=== PATIENT | male | born 1990 | race Caucasian/White ===

== ENCOUNTER 2018-11-29 09:11 | Emergency (ER) | payer MEDICARE, BC ==
[~2018-11-29] VITALS: Ht 175.3 cm; Wt 86.2 kg
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
--- NOTE | 2018-11-29 09:27 | NUR ---
DR. TA AT BEDSIDE FOR MSE.
[2018-11-29] MEDS ORDERED: LEVE500T9 PO (09:29)
[2018-11-29] MEDS ORDERED: IV NORMAL SALINE 1000 ML BAG IV ONE (09:45)
[2018-11-29] MEDS ORDERED: LORAZEPAM 2 MG/1 ML VIAL IV ONE (09:45)
[2018-11-29] MEDS ORDERED: LEVETIRACETAM 250 MG TABLET PO ONE (09:45)
[2018-11-29 10:04] LABS: BASOPHILS # (AUTO) 0.1 K/uL (0.0-8.0); EOSINOPHILS # (AUTO) 0.1 K/uL (0.0-0.7); EOSINOPHILS % (AUTO) 0.5 % (0.0-7.0); HEMATOCRIT 51.1 % (36.7-47.1); LYMPHOCYTES # (AUTO) 2.5 K/uL (20.0-40.0); LYMPHOCYTES % (AUTO) 25.1 % (20.5-51.5); MEAN CORPUSCULAR HEMOGLOBIN 30.4 uug (23.8-33.4); MEAN CORPUSCULAR HGB CONC 33 g/dL (32.5-36.3); MONOCYTES # (AUTO) 0.4 K/uL (2.0-10.0); MONOCYTES % (AUTO) 4.4 % (0.0-11.0); NEUTROPHILS # (AUTO) 6.9 K/uL (1.8-8.9); PLATELET COUNT (AUTO) 335 K/uL (152-348); RED BLOOD CELL COUNT(AUTO) 5.61 MIL/uL (4.06-5.63)
[2018-11-29] MEDS ORDERED: LEVETIRACETAM 250 MG TABLET ONE (10:04)
[2018-11-29] MEDS ORDERED: LORAZEPAM 2 MG/1 ML VIAL ONE (10:05)
--- NOTE | 2018-11-29 10:08 | NUR ---
PT TAKEN TO RADIOLOGY FOR CT SCAN.
[2018-11-29 10:11] LABS: CARBON DIOXIDE 25 mmol/L (21-32); CHLORIDE 104 mmol/L (98-107); CREATININE 1.3 mg/dL (0.6-1.3); GLUCOSE 107 mg/dL (74-106); POTASSIUM 4.4 mmol/L (3.5-5.1); UREA NITROGEN, BLOOD 17 mg/dL (7-18)
[2018-11-29 10:15] LABS: ETHANOL < 3 MG/DL (0-0)
[2018-11-29 10:17] LABS: ALANINE AMINOTRANSFERASE 140 U/L (16-63); ALKALINE PHOSPHATASE 106 U/L (50-136); ASPARTATE AMINOTRANSFERASE 51 U/L (15-37); BILIRUBIN,DIRECT 0.1 mg/dL (0.0-0.2); BILIRUBIN,TOTAL 0.4 mg/dL (0.2-1.0); TOTAL PROTEIN, SERUM 8.8 g/dL (6.4-8.2)
--- NOTE | 2018-11-29 11:29 | NUR ---
Patient discharged to home in stable conditon. Written and verbal after care instructions given. Patient verbalizes understanding of instructions. ALL BELONGINGS W/ PT. PT SELF-AMBULATED W/O DIFFICULTY. PT D/C UNDER CARE OF MOTHER.
[2018-11-29 11:30] VITALS: BP 131/66
== END 2018-11-29 11:46 | disposition home or self-care (01) ==
LOC: ER 09:11
DX: R56.9 Unspecified convulsions (principal); R41.0 Disorientation, unspecified; Z79.899 Other long term (current) drug therapy
CPT/HCPCS: 36415; 70450; 80048; 80076; 83735; 84484; 85025; 93005; 96361; 96374; 99284; G0480; J2060; 70030-TC; A4663; J7030